=== PATIENT | male | born 1975 | race African-American/Black ===

== ENCOUNTER 2022-02-22 21:13 | Emergency (ER) | payer SELFPAY ==
[2022-02-22] MEDS ORDERED: predniSONE 20 MG TAB ONE (21:23)
== END 2022-02-22 22:15 | disposition home or self-care (01) ==
LOC: BURERS 21:13
DX: J45.901 Unspecified asthma with (acute) exacerbation (principal); I10 Essential (primary) hypertension; Z71.6 Tobacco abuse counseling; Z79.51 Long term (current) use of inhaled steroids
CPT/HCPCS: 99406; J7512; J7620